=== PATIENT | female | born 1950 | race Caucasian/White ===

== ENCOUNTER 2016-02-25 07:01 | Day surgery (SDC) | payer OTHER ==
[2016-02-18 13:15] VITALS: BMI 29.2
[2016-02-25] MEDS ORDERED: PROPOFOL 20 ML ONE ×2 (07:07)
[2016-02-25] MEDS ORDERED: LIDOCAINE HCL/PF 2% SDV 5ML VIAL ONE (07:21)
[2016-02-25 08:32] VITALS: TEMP 97.7
[2016-02-25 08:58] VITALS: BP 118/65; PULSE 67
--- NOTE | 2016-02-28 15:58 | PATH ---
Surgical Pathology Report Patient Name: TATO CEBALLOS [facility]. Rec. #: [id number] /Age/Gender: 1950 (Age: 65) / F Account: [id number] Location: [facility]ENDOSCOPY Taken: 02/25/2016 Received: 02/25/2016 Reported: 02/28/2016 Physicians: Jane Mcgrath M.D. Specimen(s) Received A: BX DUODENUM B: BX ANTRUM C: BX GASTRIC BODY D: BX ESOPHAGUS Clinical History GERD, rule out colon cancer Rule out celiac disease, gastritis, GERD, rule out H. Pylori Final Diagnosis A. DUODENUM, BIOPSY: DUODENAL MUCOSA WITH NO PATHOLOGIC FINDINGS. Note: Features suggestive of celiac disease are not identified in this biopsy. B. ANTRUM, BIOPSY: MILD CHRONIC GASTRITIS. IMMUNOSTAIN IS NEGATIVE FOR H. PYLORI ORGANISMS. C. GASTRIC BODY, BIOPSY: MILD CHRONIC GASTRITIS. IMMUNOSTAIN IS NEGATIVE FOR H. PYLORI ORGANISMS. D. ESOPHAGUS, BIOPSY: MILDLY HYPERPLASTIC ESOPHAGEAL (SQUAMOUS) MUCOSA; THIS FEATURE MAY BE SEEN IN ASSOCIATION WITH GASTROESOPHAGEAL REFLUX DISEASE. NO COLUMNAR EPITHELIUM/INTESTINAL METAPLASIA IS IDENTIFIED. Electronically Signed Fozia Gee M.D. Gross Description A. Received in formalin, labeled "duodenum" are 2 armas, irregular portions of soft tissue averaging 0.2 cm. in greatest dimension. The specimens are submitted in toto in one cassette. B. Received in formalin, labeled "antrum" is a armas, irregular portion of soft tissue measuring 0.5 cm. in greatest dimension. The specimen is submitted in toto in one cassette. C. Received in formalin, labeled "body" is a armas, irregular portion of soft tissue measuring 0.6 cm. in greatest dimension. The specimen is submitted in toto in one cassette. D. Received in formalin, labeled "distal esophagus" is a armas, irregular portion of soft tissue measuring 0.6 cm. in greatest dimension. The specimen is submitted in toto in one cassette. 02/25/201602/25/2016
== END 2016-02-25 08:59 | disposition home or self-care (01) ==
LOC: FASU-ENDO 07:01
PROVIDERS: ATTEND Internal Medicine
PROC: 0DB98ZX Excision of Duodenum, Via Natural or Artificial Opening Endoscopic, Diagnostic (ICD-10-PCS; principal; 2016-02-25 07:54)
PROC: 0DB68ZX Excision of Stomach, Via Natural or Artificial Opening Endoscopic, Diagnostic (ICD-10-PCS; 2016-02-25 07:54)
DX: K29.50 Unspecified chronic gastritis without bleeding (principal)
CPT/HCPCS: 88305-TC; 88342-TC